=== PATIENT | female | born 1955 | race Caucasian/White ===

== ENCOUNTER 2016-09-12 12:57 | Emergency (ER) | payer MEDICAID ==
[~2016-09-12] VITALS: Ht 144.8 cm; Wt 66.0 kg
[2016-09-12 13:00] VITALS: BP 112/73
== END 2016-09-12 14:41 | disposition home or self-care (01) ==
LOC: ED 14:30
DX: G89.29 Other chronic pain (principal); M51.16 Intervertebral disc disorders with radiculopathy, lumbar region; G62.9 Polyneuropathy, unspecified; M46.1 Sacroiliitis, not elsewhere classified
CPT/HCPCS: 72110; 72190

== ENCOUNTER 2016-11-14 21:11 | Emergency (ER) | payer MEDICAID ==
[~2016-11-14] VITALS: Ht 144.8 cm; Wt 66.5 kg
[2016-11-14 21:15] VITALS: BP 137/85
== END 2016-11-14 23:38 | disposition home or self-care (01) ==
LOC: ED 23:27
DX: K06.8 Other specified disorders of gingiva and edentulous alveolar ridge (principal)
CPT/HCPCS: 99281

== ENCOUNTER 2019-05-20 13:06 | Emergency (ER) | payer MEDICAID ==
[~2019-05-20] VITALS: Ht 142.2 cm; Wt 64.6 kg
[2019-05-20 13:13] VITALS: BP 131/82
--- NOTE | 2019-05-20 14:20 | NUR ---
PT BACK FROM IMAGING.
--- NOTE | 2019-05-20 14:58 | NUR ---
Patient/Caregiver given discharge instructions and they have confirmed that they understand the instructions. Patient ambulatory with steady gait. PT LEFT WITH ALL PERSONAL BELONGINGS. PT STATES "I DON'T REALLY HAVE ANY PAIN UNLESS I REST MY RIGHT ELBOW ON A TABLE. OTHERWISE I DON'T HAVE ANY."
== END 2019-05-20 15:00 | disposition home or self-care (01) ==
LOC: ED 14:15
DX: S93.492A Sprain of other ligament of left ankle, initial encounter (principal); S50.01XA Contusion of right elbow, initial encounter; S80.01XA Contusion of right knee, initial encounter; S90.02XA Contusion of left ankle, initial encounter; S90.32XA Contusion of left foot, initial encounter; E11.9 Type 2 diabetes mellitus without complications; E03.9 Hypothyroidism, unspecified; W01.0XXA Fall on same level from slipping, tripping and stumbling without subsequent striking against object, initial encounter; Y93.89 Activity, other specified; Y92.524 Gas station as the place of occurrence of the external cause; Y99.8 Other external cause status
CPT/HCPCS: 99284